=== PATIENT | female | born 1980 | race Caucasian/White ===

== ENCOUNTER 2019-02-05 20:36 | Emergency (ER) | payer MEDICAID ==
[~2019-02-05] VITALS: Ht 160 cm; Wt 76.7 kg
[2019-02-05 20:40] VITALS: BP 106/66
--- NOTE | 2019-02-05 20:42 | NUR ---
TO LOBBY A/W BED, AMBULATORY
--- NOTE | 2019-02-05 20:52 | NUR ---
38 Y/O FEMALE PRESENTS TO ED WITH C/O NECK SHARP, SEVERE NECK PAIN RADIATING TO LOWER BACK X3 DAYS. PT STATES LIFING A HEAVY OBNECT IN ROOM X3 DAYS AGO. FEELT SOMETHING PULL. PAIN 8/10 STARTS IN NECK AND RADIATES TO LOWER BACK. FLEXING NECK DOWNWARD CAUSES PAIN TO RADIATE TO LOWER BACK. TWISTING NECK CAUSES PAIN TO RADIATE TO MID BACK. CMS INTACT BILAT LOWER EXTREMITIES. PT DENIES TRAUMA. VSS. ER MD AWARE. CONTINUE TO MONITOR.
--- NOTE | 2019-02-05 20:52 | NUR ---
TO BED # 10 AMBULATORY
[2019-02-05] MEDS ORDERED: KETOROLAC 30 MG/ML VIAL IM ONE (21:30)
[2019-02-05 21:50] VITALS: BP 106/66
--- NOTE | 2019-02-05 21:50 | NUR ---
Patient discharged with v/s stable. Written and verbal after care instructions given and explained. Patient alert, oriented and verbalized understanding of instructions. Ambulatory with steady gait. All questions addressed prior to discharge. ID band removed. Patient advised to follow up with PMD. Rx of NAPROSYN AND PREDNISONE given. Patient educated on indication of medication including possible reaction and side effects. Opportunity to ask questions provided and answered.
== END 2019-02-05 21:50 | disposition home or self-care (01) ==
LOC: MED 20:36
DX: S39.012A Strain of muscle, fascia and tendon of lower back, initial encounter (principal); X58.XXXA Exposure to other specified factors, initial encounter; Y93.89 Activity, other specified; Y92.89 Other specified places as the place of occurrence of the external cause; Y99.8 Other external cause status
CPT/HCPCS: 81025; 96372; 99283; J1885

== ENCOUNTER 2020-11-28 12:19 | Emergency (ER) | payer MEDICAID ==
[~2020-11-28] VITALS: Ht 157.5 cm; Wt 77.1 kg
[2020-11-28 12:21] VITALS: BP 124/81
--- NOTE | 2020-11-28 12:35 | NUR ---
[facility]: RIGHT EYE 20/25, LEFT EYE 20/25, BOTH EYES 20/10
--- NOTE | 2020-11-28 12:41 | NUR ---
DR UMANA AT BEDSIDE EXAMINING PATIENT
[2020-11-28] MEDS ORDERED: FLUORESCEIN OPTH STRIP 1 MG ONE (12:44)
[2020-11-28] MEDS ORDERED: FLUORESCEIN OPTH STRIP 1 MG OP ONE (12:45)
--- NOTE | 2020-11-28 12:45 | NUR ---
40 YEAR OLD FEMALE COMPLAINS OF LEFT EYE PAIN X 2 DAYS. PT STATES EYE IS BLURRY. REDNESS PRESENT IN LEFT EYE. PT AOX4, BREATHING EVEN AND UNLABORED, SKIN WARM AND DRY. BED IN LOWEST POSITION, LOCKED, BED RAIL UPX1. PMH - DENIES ALLERGIES - NKA
[2020-11-28] MEDS ORDERED: CILOS LEFT EYE (12:56)
[2020-11-28 13:21] VITALS: BP 124/81
--- NOTE | 2020-11-28 13:22 | NUR ---
Patient discharged with v/s stable. Written and verbal after care instructions about corneal abrasion given and explained. Patient alert, oriented and verbalized understanding of instructions. Ambulatory with steady gait. All questions addressed prior to discharge. ID band removed. Patient advised to follow up with PMD. Rx of ciloxan given. Patient educated on indication of medication including possible reaction and side effects. Opportunity to ask questions provided and answered.
== END 2020-11-28 13:22 | disposition home or self-care (01) ==
LOC: MED 12:19
DX: S05.02XA Injury of conjunctiva and corneal abrasion without foreign body, left eye, initial encounter (principal); X58.XXXA Exposure to other specified factors, initial encounter; Y93.89 Activity, other specified; Y92.89 Other specified places as the place of occurrence of the external cause; Y99.8 Other external cause status
CPT/HCPCS: 81002; 81025; 99283

== ENCOUNTER 2020-12-15 14:16 | Emergency (ER) | payer MEDICAID ==
[~2020-12-15] VITALS: Ht 160 cm; Wt 72.1 kg
[~2020-12-15 14:16] MED LIST: CILOS LEFT EYE
[2020-12-15 14:20] VITALS: BP 117/79
--- NOTE | 2020-12-15 14:47 | NUR ---
CALLED PT FROM WAITING ROOM, NO RESPONSE.
--- NOTE | 2020-12-15 14:59 | NUR ---
CALLED PT TWICE FROM WAITING ROOM, NO RESPONSE.
--- NOTE | 2020-12-15 15:08 | NUR ---
CALLED PT THIRD TIME FROM WAITING ROOM, NO RESPONSE.
--- NOTE | 2020-12-15 15:08 | NUR ---
Thuy abrams in [facility] - 12/15/20 at 1508 by [email or web address] CALLED PT TWICE FROM WAITING ROOM, NO RESPONSE.
== END 2020-12-15 14:47 | disposition left against medical advice (07) ==
LOC: MED 14:16
DX: R10.9 Unspecified abdominal pain (principal); Z53.21 Procedure and treatment not carried out due to patient leaving prior to being seen by health care provider

== ENCOUNTER 2022-01-14 19:26 | Emergency (ER) | payer MEDICAID, OTHER ==
[~2022-01-14] VITALS: Ht 157.5 cm; Wt 70.9 kg
[2022-01-14 19:42] VITALS: BP 114/63
--- NOTE | 2022-01-14 19:45 | NUR ---
PT SENT TO LOBBY WAITING FOR BED.
--- NOTE | 2022-01-14 20:46 | NUR ---
PT TAKEN TO BED #1
--- NOTE | 2022-01-14 21:07 | NUR ---
41 Y.O. F BIB SELF C/O 03/05 MID TO LOWER BACK PAIN XYESTERDAY. PT DENIES INJURY. DENIES CHANGES IN URINATION. DENIES TAKING MEDICATION FOR PAIN. PT STATES THAT SOMETIMES IT IS HARD TO BREATH DUE TO THE BACK PAIN. NO SOB, N/V/D, OR PAIN IN THE CHEST. PT STATES SHE DENIES LIFTING ANYTHING HEAVY OR MAKING A QUICK MOVEMENT WHILE LIFTING THINGS. PTS A&OX4, PERRLA, GCS OF 15 AND STAEDY GAIT TO BEDSIDE. DENIES HX, RX AND ALLERGIES
[2022-01-14 21:41] VITALS: BP 98/62
[2022-01-14] MEDS ORDERED: KETOROLAC 30 MG/ML VIAL IM ONE (21:50)
[2022-01-14] MEDS ORDERED: NAPR-54 PO (23:02)
--- NOTE | 2022-01-14 23:06 | NUR ---
d/c with VSS> d/c education given. opportunity to ask questions given and answered. rx of naprosyn given.
== END 2022-01-14 23:04 | disposition home or self-care (01) ==
LOC: MED 19:26
DX: S39.012A Strain of muscle, fascia and tendon of lower back, initial encounter (principal); Z79.899 Other long term (current) drug therapy; X58.XXXA Exposure to other specified factors, initial encounter; Y93.89 Activity, other specified; Y92.89 Other specified places as the place of occurrence of the external cause; Y99.8 Other external cause status
CPT/HCPCS: 81002; 81025; 96372; 99283; J1885

== ENCOUNTER 2022-02-04 20:42 | Emergency (ER) | payer OTHER ==
[~2022-02-04] VITALS: Ht 160 cm; Wt 72.6 kg
[~2022-02-04 20:42] MED LIST changes: +NAPR-54 PO
[2022-02-04 20:51] VITALS: BP 100/64
--- NOTE | 2022-02-04 20:56 | NUR ---
Patient ambulated to bed 11.
--- NOTE | 2022-02-04 21:00 | NUR ---
C/O right shoulder pain, after holding pinata over her head. Denies trauma
--- NOTE | 2022-02-04 21:16 | NUR ---
X-ray at bedside.
--- NOTE | 2022-02-04 22:04 | NUR ---
Dr. Pantoja examining at bedside.
[2022-02-04] MEDS ORDERED: NAPR-54 PO (22:08)
[2022-02-04 22:12] VITALS: BP 100/64
--- NOTE | 2022-02-04 22:12 | NUR ---
Patient discharged with v/s stable. Written and verbal after care instructions given and explained. Patient verbalized understanding. Ambulatory with steady gait. All questions addressed prior to discharge. Advised to follow up with PMD.
== END 2022-02-04 22:12 | disposition home or self-care (01) ==
LOC: MED 20:42
DX: M75.21 Bicipital tendinitis, right shoulder (principal); Z98.890 Other specified postprocedural states
CPT/HCPCS: 73030; 99283